=== PATIENT | male | born 1945 | race Caucasian/White ===

== ENCOUNTER 2022-10-28 11:39 | Outpatient (CLI) | payer MEDICARE | END 2022-10-28 11:40 | disposition home or self-care (01) | LOC: MADRAD 11:39 | PROVIDERS: ATTEND Registered Nurse | DX: R05.8 Other specified cough (principal) | CPT/HCPCS: 71046 ==

== ENCOUNTER 2023-10-07 11:03 | Outpatient (CLI) | payer MEDICARE | END 2023-10-07 11:04 | disposition home or self-care (01) | LOC: MADRAD 11:03 | PROVIDERS: ATTEND Registered Nurse | DX: R06.00 Dyspnea, unspecified (principal); I51.7 Cardiomegaly | CPT/HCPCS: 71046 ==